=== PATIENT | male | born 1965 | race Caucasian/White ===

== ENCOUNTER 2018-09-26 14:20 | Inpatient (IN) | payer SELFPAY ==
[~2018-09-26] VITALS: Ht 167.6 cm; Wt 83.5 kg
[2018-09-26] MEDS ORDERED: MORPHINE SULFATE 4 MG/ML CPJ (NOT FOR IM USE) IV STA ×2 (15:47→20:27)
[2018-09-26] MEDS ORDERED: ONDANSETRON HCL 4MG/2ML INJ IV STA ×2 (15:47→20:27)
[2018-09-26 16:07] LABS: HEMATOCRIT. 41.3 % (42.0-52.0); HEMOGLOBIN. 13.9 g/dL (14.0-18.0); MEAN CORPUSCULAR HEMOGLOBIN 29.9 pg (28.0-32.0); MEAN CORPUSCULAR VOLUME 88.8 fL (80.0-94.0); MEAN PLATELET VOLUME 6.9 fl (7.4-10.4); PLATELET 590 x1000/uL (130-400); RED BLOOD CELL COUNT 4.65 mill/uL (4.7-6.1); RED CELL DISTRIBUTION WIDTH 14.3 % (11.6-14.6)
[2018-09-26 16:09] LABS: CHLORIDE 93 mEq/L (98-107)
[2018-09-26 16:14] LABS: ETHANOL BLOOD < 10 mg/dL
[2018-09-26 16:16] LABS: D-DIMER 1.91 mg/L FEU (<0.50); INR 1.1; PARTIAL THROMBOPLASTIN TIME 28.8 sec (23.4-31.0); PROTHROMBIN TIME 10.7 sec (9.1-11.1)
[2018-09-26 16:32] LABS: PLATELET ESTIMATE INCREASED
[2018-09-26] MEDS ORDERED: IOHEXOL-350 100 ML BOTTLE ONE (17:52)
[2018-09-26] MEDS ORDERED: LEVOFLOXACIN 750MG PREMIX 150 ML IV ONE (18:00)
[2018-09-26] MEDS ORDERED: SODIUM CHLORIDE 0.9% 1000ML BAG (SEPSIS BOLUS) IV ONE (18:00)
[2018-09-26] MEDS ORDERED: GUAIFENESIN 200MG/10ML SUGAR FREE UDC PO PRN (22:45)
[2018-09-26] MEDS ORDERED: DIPHENHYDRAMINE 50MG/ML VIAL IV PRN (22:45)
[2018-09-26] MEDS ORDERED: IPRATROPIUM/ALBUTEROL 0.5-3(2.5)MG/3ML NEB INH PRN (22:45)
[2018-09-26] MEDS ORDERED: MAGNESIUM/ALUMINUM HYDROXIDE/SIMETHICONE 30ML UDC PO PRN (22:45)
[2018-09-26] MEDS ORDERED: ACETAMINOPHEN 325MG TABLET PO PRN (22:45)
[2018-09-26] MEDS ORDERED: DOCUSATE SODIUM 100MG CAPSULE PO PRN (22:45)
[2018-09-26] MEDS ORDERED: CLONIDINE 0.1MG TABLET PO PRN (22:45)
[2018-09-27] MEDS: HYDROCODONE/ACETAMINOPHEN 5/325MG TABLET PO PRN ×4 (00:20→23:45)
[2018-09-27 05:26] LABS: CHLORIDE 98 mEq/L (98-107); HEMATOCRIT. 36.9 % (42.0-52.0); HEMOGLOBIN. 12.4 g/dL (14.0-18.0); MEAN CORPUSCULAR HEMOGLOBIN 29.8 pg (28.0-32.0); MEAN CORPUSCULAR VOLUME 88.8 fL (80.0-94.0); MEAN PLATELET VOLUME 6.8 fl (7.4-10.4); PLATELET 507 x1000/uL (130-400); RED BLOOD CELL COUNT 4.15 mill/uL (4.7-6.1); RED CELL DISTRIBUTION WIDTH 14.1 % (11.6-14.6)
[2018-09-27 05:35] LABS: LDL CHOLESTEROL 89 mg/dL (5-100); PHOSPHORUS 3.5 mg/dL (2.5-4.9)
[2018-09-27 05:37] LABS: HDL CHOLESTEROL 16 mg/dL (40-59)
[2018-09-27 05:38] LABS: T4 FREE 1.31 ng/dL (0.76-1.46)
[2018-09-27 06:15] LABS: PLATELET ESTIMATE INCREASED
[2018-09-27] MEDS ORDERED: LIDOCAINE HCL 1% 20ML VIAL (Pyxis) INJ ONE (09:58)
[2018-09-27] MEDS ORDERED: PIPERACILLIN/TAZ 3.375G PREMIX 50 ML IV ONE (12:45)
[2018-09-27] MEDS ORDERED: LIDOCAINE 5% PATCH TOP SCH (13:45)
[2018-09-27] MEDS ORDERED: CEFTRIAXONE 1 G PREMIX 50 ML IV SCH (16:45)
[2018-09-27] MEDS ORDERED: AZITHROMYCIN 500 MG in DEXT 5% WATER 250 ML IV SCH (16:45)
[2018-09-27] MEDS ORDERED: LEVOFLOXACIN 500MG PREMIX 100 ML IV SCH (18:30)
[2018-09-27] MEDS ORDERED: CEFTRIAXONE SODIUM 1 G/VIAL ONE (18:34)
[2018-09-27] MEDS ORDERED: AZITHROMYCIN 500 MG in DEXT 5% WATER 250 ML IV NR (19:00)
[2018-09-27] MEDS ORDERED: CEFTRIAXONE 1,000 MG in DEXTROSE 5% WATER 50 ML IV NR (19:00)
[2018-09-27 21:30] VITALS: BP 116/65
[2018-09-27] MEDS: NICOTINE 14MG PATCH TD SCH (23:00)
[2018-09-27] MEDS: METRONIDAZOLE 500MG TABLET PO SCH (23:46)
[2018-09-28] VITALS: BP 131/76
[2018-09-28] MEDS ORDERED: DEXTROSE 50% WATER 50ML SYRINGE IV PRN
[2018-09-28] MEDS: INSULIN LISPRO 100 UNITS/ML SUBCUT SCH ×5 (01:11→21:00)
[2018-09-28 04:00] VITALS: BP 127/72
[2018-09-28] MEDS: BLOOD SUGAR DIAGNOSTIC STRIP TEST SCH ×3 (07:40→20:01)
[2018-09-28 08:00] VITALS: BP 118/72
[2018-09-28] MEDS ORDERED: INSULIN LISPRO 100 UNITS/ML SUBCUT SCH (08:10)
[2018-09-28 08:15] LABS: BASOPHILS % 0.5 % (0.0-2.0); EOSINOPHILS % 0.9 % (0.0-5.0); HEMATOCRIT. 37.6 % (42.0-52.0); HEMOGLOBIN. 12.5 g/dL (14.0-18.0); LYMPHOCYTES % 7.9 % (20.0-50.0); MEAN CORPUSCULAR HEMOGLOBIN 30.2 pg (28.0-32.0); MEAN CORPUSCULAR VOLUME 91.1 fL (80.0-94.0); MONOCYTES % 8.6 % (2.0-8.0); NEUTROPHILS % 82.1 % (40.0-76.0); PLATELET 527 x1000/uL (130-400); RED BLOOD CELL COUNT 4.12 mill/uL (4.7-6.1); RED CELL DISTRIBUTION WIDTH 14.6 % (11.6-14.6)
[2018-09-28] MEDS: METRONIDAZOLE 500MG TABLET PO SCH ×2 (08:32→20:12)
[2018-09-28] MEDS: HYDROCODONE/ACETAMINOPHEN 5/325MG TABLET PO PRN ×2 (08:32→20:13)
[2018-09-28 09:50] LABS: CHLORIDE 102 mEq/L (98-107)
[2018-09-28] MEDS: LIDOCAINE 5% PATCH TOP SCH (10:00)
[2018-09-28 12:00] VITALS: BP 130/71
[2018-09-28 16:00] VITALS: BP 120/68
[2018-09-28] MEDS: IPRATROPIUM BROMIDE (0.02%) 0.5MG/2.5ML NEB HHN SCH ×2 (17:54→21:14)
[2018-09-28] MEDS ORDERED: CEFTRIAXONE 1,000 MG in DEXTROSE 5% WATER 50 ML IV SCH (18:00)
[2018-09-28] MEDS ORDERED: AZITHROMYCIN 500 MG in DEXT 5% WATER 250 ML IV SCH (19:00)
[2018-09-28 20:00] VITALS: BP 128/72
[2018-09-28 21:10] LABS: CLARITY URINE CLEAR (CLEAR); COLOR URINE YELLOW (YELLOW); KETONES URINE NEGATIVE (NEGATIVE); LEUKOCYTE ESTERASE URINE NEGATIVE (NEGATIVE); NITRITE URINE NEGATIVE (NEGATIVE); OCCULT BLOOD URINE NEGATIVE (NEGATIVE); PROTEIN URINE TRACE (NEGATIVE); SPECIFIC GRAVITY URINE 1.014 (1.005-1.030)
[2018-09-28 21:20] LABS: CANNABINOID URINE SCREEN NEGATIVE (NEGATIVE); METHADONE URINE SCREEN NEGATIVE (NEGATIVE); OPIATES URINE SCREEN PRESUMTIVE POSITIVE (NEGATIVE); PHENCYCLIDINE URINE SCREEN NEGATIVE (NEGATIVE)
[2018-09-28 21:21] LABS: *AMPHETAMINES SCREEN URINE NEGATIVE (NEGATIVE); *BARBITURATES SCREEN URINE NEGATIVE (NEGATIVE); *BENZODIAZEPINES SCREEN URINE NEGATIVE (NEGATIVE); *COCAINE SCREEN URINE NEGATIVE (NEGATIVE)
[2018-09-28] MEDS ORDERED: INSULIN GLARGINE UD 100 UNITS/ML SYR SUBCUT SCH (22:00)
[2018-09-28] MEDS: NICOTINE 14MG PATCH TD SCH (23:00)
[2018-09-29 06:36] LABS: BASOPHILS % 0.6 % (0.0-2.0); EOSINOPHILS % 1.5 % (0.0-5.0); HEMATOCRIT. 36.8 % (42.0-52.0); HEMOGLOBIN. 12.3 g/dL (14.0-18.0); MEAN CORPUSCULAR HEMOGLOBIN 30.1 pg (28.0-32.0); MEAN CORPUSCULAR VOLUME 90.2 fL (80.0-94.0); MEAN PLATELET VOLUME 6.8 fl (7.4-10.4); MONOCYTES % 9.7 % (2.0-8.0); NEUTROPHILS % 78.2 % (40.0-76.0); PLATELET 501 x1000/uL (130-400); RED BLOOD CELL COUNT 4.08 mill/uL (4.7-6.1); RED CELL DISTRIBUTION WIDTH 14.3 % (11.6-14.6)
[2018-09-29] MEDS: BLOOD SUGAR DIAGNOSTIC STRIP TEST SCH ×2 (06:54→11:44)
[2018-09-29 07:06] LABS: CHLORIDE 103 mEq/L (98-107)
[2018-09-29 08:00] VITALS: BP 139/70
[2018-09-29] MEDS: INSULIN LISPRO 100 UNITS/ML SUBCUT SCH ×2 (08:17→13:20)
[2018-09-29] MEDS: IPRATROPIUM BROMIDE (0.02%) 0.5MG/2.5ML NEB HHN SCH ×2 (08:52→14:53)
[2018-09-29] MEDS: METRONIDAZOLE 500MG TABLET PO SCH (10:14)
[2018-09-29] MEDS: LIDOCAINE 5% PATCH TOP SCH (10:15)
[2018-09-29] MEDS: HYDROCODONE/ACETAMINOPHEN 5/325MG TABLET PO PRN (10:20)
[2018-09-29 12:00] VITALS: BP 137/76
[2018-09-29 13:49] VITALS: BP 137/76
== END 2018-09-29 15:15 | disposition home or self-care (01) | DRG 139 ==
LOC: ER 14:20 → 7WST 18:48 → EDBEDREQ 18:54 → EDBEDREQTM 18:54 → ENRESERV 09-27 20:36
PROVIDERS: ADMIT Family Medicine Adult Medicine; ATTEND Family Medicine Adult Medicine
DX: J18.1 Lobar pneumonia, unspecified organism (principal); J96.00 Acute respiratory failure, unspecified whether with hypoxia or hypercapnia; J90 Pleural effusion, not elsewhere classified; E46 Unspecified protein-calorie malnutrition; E11.65 Type 2 diabetes mellitus with hyperglycemia; E66.9 Obesity, unspecified; E87.1 Hypo-osmolality and hyponatremia; R00.0 Tachycardia, unspecified; F15.10 Other stimulant abuse, uncomplicated; F17.210 Nicotine dependence, cigarettes, uncomplicated; K40.20 Bilateral inguinal hernia, without obstruction or gangrene, not specified as recurrent; Z96.653 Presence of artificial knee joint, bilateral; Z87.81 Personal history of (healed) traumatic fracture; Z68.29 Body mass index [BMI] 29.0-29.9, adult
CPT/HCPCS: 36415; 71045; 71275; 74174; 80048; 80061; 80305; 80320; 82962; 83036; 83605; 83735; 83880; 84100; 84439; 84443; 84481; 84484; 85379; 87070; 93005; 93306; 93970; 94640; 96365; 96366; 96367; 96375; 96376; 99285; J0456; J0696; J1815; J1956; J2270; J2405; J3490; J7030; J7050; J7060; J7620; Q9967; G0480

== ENCOUNTER 2021-06-01 16:58 | Inpatient (IN) | payer MEDICAID, OTHER ==
[~2021-06-01] VITALS: Ht 172.7 cm; Wt 83.5 kg
[2021-06-01] MEDS ORDERED: ACETAMINOPHEN 325MG TABLET PO STA (17:56)
[2021-06-01] MEDS ORDERED: PIPERACILLIN/TAZ 3.375G PREMIX 50 ML IV ONE (18:00)
[2021-06-01] MEDS ORDERED: ACETAMINOPHEN 325MG TABLET PO NR (22:49)
[2021-06-01 22:59] LABS: BASOPHILS % 0.6 % (0.0-2.0); HEMATOCRIT. 37.9 % (42.0-52.0); HEMOGLOBIN. 13.1 g/dL (14.0-18.0); LYMPHOCYTES % 15.5 % (20.0-50.0); MEAN CORPUSCULAR HEMOGLOBIN 29.4 pg (28.0-32.0); MEAN CORPUSCULAR VOLUME 84.7 fL (80.0-94.0); MEAN PLATELET VOLUME 6.6 fl (7.4-10.4); MONOCYTES % 8.5 % (2.0-8.0); NEUTROPHILS % 74.4 % (40.0-76.0); PLATELET 374 x1000/uL (130-400); RED BLOOD CELL COUNT 4.47 mill/uL (4.7-6.1); RED CELL DISTRIBUTION WIDTH 13.2 % (11.6-14.6)
[2021-06-01] MEDS ORDERED: SODIUM CHLORIDE 0.9% 1,000 ML IV ONE (23:00)
[2021-06-01 23:02] LABS: CHLORIDE 103 mEq/L (98-107)
[2021-06-02] VITALS (7 sets, daily range): BP systolic 100–114; BP diastolic 52–73
[2021-06-02] MEDS: MORPHINE SULFATE 2 MG/ML CPJ (NOT FOR IM USE) IV PRN ×3 (00:07→19:12)
[2021-06-02] MEDS ORDERED: NALOXONE HCL 0.4 MG/ML 1ML VIAL IV PRN (00:15)
[2021-06-02] MEDS ORDERED: DEXTROSE 50% WATER 50ML SYRINGE IV PRN (08:30)
[2021-06-02] MEDS ORDERED: VANCOMYCIN 1500MG in DEXTROSE 5% WATER 250ML IV SCH (09:00)
[2021-06-02] MEDS: PIPERACILLIN/TAZOBACTAM 3.375 G in DEXTROSE 5% WATER 50 ML IV SCH ×3 (09:26→21:20)
[2021-06-02 09:42] LABS: HEMATOCRIT 37.9 % (42.0-52.0); HEMOGLOBIN 12.8 g/dL (14.0-18.0); MEAN CORPUSCULAR HEMOGLOBIN 29.4 pg (28.0-32.0); MEAN CORPUSCULAR VOLUME 86.9 fL (80.0-94.0); PLATELET 347 x1000/uL (130-400); RED BLOOD CELL COUNT 4.37 mill/uL (4.7-6.1); RED CELL DISTRIBUTION WIDTH 13.2 % (11.6-14.6)
[2021-06-02 09:54] LABS: CHLORIDE 107 mEq/L (98-107)
[2021-06-02 10:01] LABS: LDL CHOLESTEROL 102 mg/dL (5-100)
[2021-06-02 10:04] LABS: HDL CHOLESTEROL 38 mg/dL (40-59)
[2021-06-02] MEDS: BLOOD SUGAR DIAGNOSTIC STRIP TEST SCH ×3 (12:43→21:04)
[2021-06-02] MEDS: INSULIN LISPRO 100 UNITS/ML SUBCUT SCH ×3 (12:56→21:16)
[2021-06-02] MEDS: VANCOMYCIN 1250MG in DEXTROSE 5% WATER 250ML IV SCH (21:04)
[2021-06-02] MEDS: HYDROCODONE/ACETAMINOPHEN 5/325MG TABLET PO PRN (21:23)
[2021-06-03] VITALS: BP 118/70
[2021-06-03 04:00] VITALS: BP 91/55
[2021-06-03] MEDS: PIPERACILLIN/TAZOBACTAM 3.375 G in DEXTROSE 5% WATER 50 ML IV SCH ×2 (06:31→13:10)
[2021-06-03] MEDS: BLOOD SUGAR DIAGNOSTIC STRIP TEST SCH ×4 (06:32→21:44)
[2021-06-03] MEDS ORDERED: LIDOCAINE HCL 1% 30ML VIAL (10MG/ML) ONE (07:21)
[2021-06-03] MEDS ORDERED: BUPIVACAINE HCL/PF 0.5% (5MG/ML) 10ML ONE (07:21)
[2021-06-03] MEDS ORDERED: POLYMYXIN B SULFATE 500000 UNITS/VIAL ONE ×2 (07:22→08:17)
[2021-06-03] MEDS ORDERED: VANCOMYCIN HCL 1 GM/VIAL ONE (07:22)
[2021-06-03] MEDS: INSULIN LISPRO 100 UNITS/ML SUBCUT SCH ×4 (07:50→22:03)
[2021-06-03] MEDS ORDERED: ROPIVACAINE HCL 10MG/ML 20 ML VIAL EPI ONE (07:52)
[2021-06-03] MEDS ORDERED: FENTANYL CITRATE/PF 50MCG/ML 2ML VIAL ONE (07:53)
[2021-06-03] MEDS ORDERED: PROPOFOL 200MG/20ML VIAL IV ONE (07:53)
[2021-06-03] MEDS ORDERED: ONDANSETRON HCL 4MG/2ML INJ ONE (07:54)
[2021-06-03] MEDS ORDERED: GLYCOPYRROLATE 0.2 MG/ML 2ML VIAL ONE (07:54)
[2021-06-03] MEDS ORDERED: METOCLOPRAMIDE HCL 10MG/2ML VIAL ONE (07:54)
[2021-06-03] MEDS ORDERED: MIDAZOLAM HCL 2 MG/2 ML VIAL ONE (07:54)
[2021-06-03] MEDS: VANCOMYCIN 1250MG in DEXTROSE 5% WATER 250ML IV SCH ×2 (09:00→22:30)
[2021-06-03 12:00] VITALS: BP 100/60
[2021-06-03 16:00] VITALS: BP 98/63
[2021-06-03 20:00] VITALS: BP 103/68
[2021-06-04] VITALS: BP 111/59
[2021-06-04] MEDS: MORPHINE SULFATE 2 MG/ML CPJ (NOT FOR IM USE) IV PRN ×4 (01:04→22:16)
[2021-06-04] MEDS: PIPERACILLIN/TAZOBACTAM 3.375 G in DEXTROSE 5% WATER 50 ML IV SCH ×4 (01:04→21:32)
[2021-06-04] MEDS: HYDROCODONE/ACETAMINOPHEN 5/325MG TABLET PO PRN ×3 (02:31→18:08)
[2021-06-04 04:00] VITALS: BP 121/64
[2021-06-04] MEDS: BLOOD SUGAR DIAGNOSTIC STRIP TEST SCH ×4 (06:15→21:15)
[2021-06-04 07:00] LABS: CHLORIDE 103 mEq/L (98-107)
[2021-06-04] MEDS: INSULIN LISPRO 100 UNITS/ML SUBCUT SCH ×5 (07:50→21:00)
[2021-06-04 08:00] VITALS: BP 116/62
[2021-06-04] MEDS ORDERED: VANCOMYCIN 1 G PREMIX 200 ML IV SCH (11:00)
[2021-06-04] MEDS: VANCOMYCIN 1250MG in DEXTROSE 5% WATER 250ML IV SCH (11:54)
[2021-06-04 12:00] VITALS: BP 105/66
[2021-06-04] MEDS: NITROGLYCERIN 0.2MG/HR PATCH TOP SCH (13:26)
[2021-06-04 16:00] VITALS: BP 100/69
[2021-06-04] MEDS ORDERED: POTASSIUM CHLORIDE 20MEQ TABLET SR PO NR (17:45)
[2021-06-04 20:00] VITALS: BP 98/53
[2021-06-05] VITALS: BP 145/73
[2021-06-05] MEDS: VANCOMYCIN 1 G PREMIX 200 ML IV SCH ×2 (01:35→11:57)
[2021-06-05] MEDS: MORPHINE SULFATE 2 MG/ML CPJ (NOT FOR IM USE) IV PRN ×3 (03:20→21:58)
[2021-06-05 04:00] VITALS: BP 116/41
[2021-06-05] MEDS: PIPERACILLIN/TAZOBACTAM 3.375 G in DEXTROSE 5% WATER 50 ML IV SCH ×3 (05:45→21:48)
[2021-06-05] MEDS: BLOOD SUGAR DIAGNOSTIC STRIP TEST SCH ×4 (06:22→21:00)
[2021-06-05] MEDS: INSULIN LISPRO 100 UNITS/ML SUBCUT SCH ×4 (07:50→22:09)
[2021-06-05 08:00] VITALS: BP 104/56
[2021-06-05] MEDS: NITROGLYCERIN 0.2MG/HR PATCH TOP SCH (09:24)
[2021-06-05] MEDS ORDERED: HYDR-4001 PO (11:00)
[2021-06-05 12:00] VITALS: BP 107/65
[2021-06-05 16:00] VITALS: BP 117/57
[2021-06-05 20:00] VITALS: BP 108/59
[2021-06-06] VITALS: BP 122/70
[2021-06-06] MEDS: VANCOMYCIN 1 G PREMIX 200 ML IV SCH ×2 (02:53→12:48)
[2021-06-06 04:00] VITALS: BP 105/58
[2021-06-06] MEDS: PIPERACILLIN/TAZOBACTAM 3.375 G in DEXTROSE 5% WATER 50 ML IV SCH ×2 (05:56→14:17)
[2021-06-06] MEDS: MORPHINE SULFATE 2 MG/ML CPJ (NOT FOR IM USE) IV PRN ×2 (06:09→12:09)
[2021-06-06] MEDS: BLOOD SUGAR DIAGNOSTIC STRIP TEST SCH ×4 (07:02→20:43)
[2021-06-06 08:00] VITALS: BP 100/65
[2021-06-06] MEDS: INSULIN LISPRO 100 UNITS/ML SUBCUT SCH ×4 (08:20→20:43)
[2021-06-06] MEDS: NITROGLYCERIN 0.2MG/HR PATCH TOP SCH (08:21)
[2021-06-06 08:43] LABS: CHLORIDE 106 mEq/L (98-107)
[2021-06-06] MEDS: HYDROCODONE/ACETAMINOPHEN 5/325MG TABLET PO PRN ×2 (10:02→20:43)
[2021-06-06 12:00] VITALS: BP 93/57
[2021-06-06 16:00] VITALS: BP 128/63
[2021-06-06 20:00] VITALS: BP 96/52
[2021-06-06] MEDS: CEFEPIME 2,000 MG in DEXT 5% WATER 100 ML IV SCH (20:43)
[2021-06-07] VITALS: BP 92/52
[2021-06-07 04:00] VITALS: BP 96/69
[2021-06-07] MEDS: HYDROCODONE/ACETAMINOPHEN 5/325MG TABLET PO PRN (06:41)
[2021-06-07] MEDS: BLOOD SUGAR DIAGNOSTIC STRIP TEST SCH ×4 (07:20→21:15)
[2021-06-07] MEDS: INSULIN LISPRO 100 UNITS/ML SUBCUT SCH ×4 (07:34→21:00)
[2021-06-07 08:00] VITALS: BP 99/80
[2021-06-07] MEDS: CEFEPIME 2,000 MG in DEXT 5% WATER 100 ML IV SCH ×2 (08:25→21:14)
[2021-06-07] MEDS: NITROGLYCERIN 0.2MG/HR PATCH TOP SCH (09:00)
[2021-06-07 12:00] VITALS: BP 115/71
[2021-06-07 16:00] VITALS: BP 107/70
[2021-06-07 20:00] VITALS: BP 97/63
[2021-06-07] MEDS: ACETAMINOPHEN 650MG/20.3ML UDC PO PRN (21:15)
[2021-06-08] VITALS: BP 97/63
[2021-06-08 04:00] VITALS: BP 123/63
[2021-06-08] MEDS: BLOOD SUGAR DIAGNOSTIC STRIP TEST SCH ×2 (07:39→12:20)
[2021-06-08 08:00] VITALS: BP 121/68
[2021-06-08] MEDS: NITROGLYCERIN 0.2MG/HR PATCH TOP SCH ×2 (08:50→09:00)
[2021-06-08] MEDS: INSULIN LISPRO 100 UNITS/ML SUBCUT SCH ×2 (08:50→13:28)
[2021-06-08] MEDS: ACETAMINOPHEN 650MG/20.3ML UDC PO PRN (08:50)
[2021-06-08 12:00] VITALS: BP 123/66
[2021-06-08 16:01] VITALS: BP 122/69
[2021-06-08 16:54] VITALS: BP 122/69
== END 2021-06-08 17:05 | disposition home or self-care (01) | DRG 314 ==
LOC: ER 16:58 → 6EST 22:42 → EDBEDREQTM 22:44 → EDBEDREQ 22:44 → ENRESERV 23:57
PROVIDERS: ADMIT Internal Medicine; ATTEND Internal Medicine
PROC: 0Y6S0Z0 Detachment at Left 2nd Toe, Complete, Open Approach (ICD-10-PCS; principal; 2021-06-03)
PROC: 0Y6U0Z0 Detachment at Left 3rd Toe, Complete, Open Approach (ICD-10-PCS; 2021-06-03)
DX: E11.52 Type 2 diabetes mellitus with diabetic peripheral angiopathy with gangrene (principal); E43 Unspecified severe protein-calorie malnutrition; I96 Gangrene, not elsewhere classified; M86.8X7 Other osteomyelitis, ankle and foot; E11.69 Type 2 diabetes mellitus with other specified complication; D64.9 Anemia, unspecified; S90.421A Blister (nonthermal), right great toe, initial encounter; S90.512A Abrasion, left ankle, initial encounter; Z20.822 Contact with and (suspected) exposure to COVID-19; Z96.659 Presence of unspecified artificial knee joint; X58.XXXA Exposure to other specified factors, initial encounter; Z59.00 Homelessness unspecified; Z68.28 Body mass index [BMI] 28.0-28.9, adult; Z71.6 Tobacco abuse counseling; Y93.89 Activity, other specified; Y92.89 Other specified places as the place of occurrence of the external cause; Y99.8 Other external cause status
CPT/HCPCS: 36415; 71045; 73630; 73721; 80048; 80053; 80061; 80202; 82962; 85025; 85027; 87070; 87075; 87077; 87186; 87426; 88305; 88311; 93923; 97162; 99285; J0692; J1815; J2250; J2270; J2405; J2543; J2704; J2765; J2795; J3010; J3370; J3490; J7030; J7040; J7060